=== PATIENT | male | born 1990 | race Caucasian/White ===

== ENCOUNTER 2019-02-11 19:49 | Inpatient (IN) | payer MEDICAID ==
[~2019-02-11] VITALS: Ht 170.2 cm; Wt 126.1 kg
[2019-02-11] MEDS ORDERED: SODIUM CHLORIDE 0.9% 1,000 ML IV ONE (20:25)
[2019-02-11 20:42] LABS: BASOPHILS % 0.2 % (0.0-2.0); EOSINOPHILS % 0.5 % (0.0-5.0); HEMATOCRIT. 46.1 % (42.0-52.0); HEMOGLOBIN. 15.9 g/dL (14.0-18.0); MEAN CORPUSCULAR HEMOGLOBIN 28.4 pg (28.0-32.0); MEAN CORPUSCULAR VOLUME 82.4 fL (80.0-94.0); MEAN PLATELET VOLUME 8.6 fl (7.4-10.4); MONOCYTES % 4.1 % (2.0-8.0); NEUTROPHILS % 79.2 % (40.0-76.0); PLATELET 226 x1000/uL (130-400); RED BLOOD CELL COUNT 5.59 mill/uL (4.7-6.1); RED CELL DISTRIBUTION WIDTH 15.2 % (11.6-14.6)
[2019-02-11 20:49] LABS: CHLORIDE 105 mEq/L (98-107)
[2019-02-11 20:50] LABS: PROTHROMBIN TIME 10.5 sec (9.6-11.0)
[2019-02-11 20:53] LABS: ETHANOL BLOOD < 10 mg/dL
[2019-02-11 20:57] LABS: CREATINE KINASE 27 IU/L (39-308)
[2019-02-11 21:07] LABS: CARBAMAZEPINE < 0.5 ug/mL (4-12); PHENOBARBITAL < 2.1 ug/mL (15.0-40.0)
[2019-02-11] MEDS ORDERED: LEVETIRACETAM 1000MG/100ML 100 ML IV ONE (21:45)
[2019-02-11] MEDS ORDERED: POTASSIUM CHLORIDE 20MEQ/PACKET GT ONE (22:00)
[2019-02-11] MEDS ORDERED: ACETAMINOPHEN 325MG TABLET PO PRN (22:15)
[2019-02-11] MEDS ORDERED: ONDANSETRON HCL 4MG/2ML INJ IV PRN (22:15)
[2019-02-11] MEDS ORDERED: DOCUSATE SODIUM 100MG CAPSULE PO PRN (22:15)
[2019-02-11] MEDS ORDERED: MAGNESIUM/ALUMINUM HYDROXIDE/SIMETHICONE 30ML UDC PO PRN (22:15)
[2019-02-11] MEDS ORDERED: LEVETIRACETAM 500 MG in SODIUM CHLORIDE 0.9% 100 ML IV SCH (22:15)
[2019-02-11] MEDS ORDERED: CLONIDINE 0.1MG TABLET PO PRN (22:15)
[2019-02-11] MEDS ORDERED: IPRATROPIUM/ALBUTEROL 0.5-3(2.5)MG/3ML NEB NEB PRN (22:15)
[2019-02-11 23:28] LABS: CHLORIDE 110 mEq/L (98-107)
[2019-02-12] VITALS (11 sets, daily range): BP systolic 95–146; BP diastolic 55–96
[2019-02-12] MEDS: SODIUM CHLORIDE 0.9% 1,000 ML IV SCH ×2 (02:20→17:04)
[2019-02-12 05:42] LABS: BASOPHILS % 0.3 % (0.0-2.0); EOSINOPHILS % 0.8 % (0.0-5.0); HEMOGLOBIN. 14.8 g/dL (14.0-18.0); LYMPHOCYTES % 29.8 % (20.0-50.0); MEAN CORPUSCULAR HEMOGLOBIN 28.2 pg (28.0-32.0); MEAN CORPUSCULAR VOLUME 83.7 fL (80.0-94.0); MEAN PLATELET VOLUME 8.6 fl (7.4-10.4); MONOCYTES % 5.6 % (2.0-8.0); NEUTROPHILS % 63.5 % (40.0-76.0); PLATELET 187 x1000/uL (130-400); RED BLOOD CELL COUNT 5.26 mill/uL (4.7-6.1)
[2019-02-12 06:13] LABS: HDL CHOLESTEROL 28 mg/dL (40-59); LDL CHOLESTEROL 62 mg/dL (5-100)
[2019-02-12 06:17] LABS: CREATINE KINASE MB FRACTION < 1.0 ng/mL (0.5-3.6)
[2019-02-12] MEDS ORDERED: LEVETIRACETAM 500 MG in SODIUM CHLORIDE 0.9% 100 ML IV SCH (09:00)
[2019-02-12] MEDS: LEVETIRACETAM 500MG/5ML CUP PO SCH (21:22)
[2019-02-13] VITALS (10 sets, daily range): BP systolic 102–138; BP diastolic 57–82
[2019-02-13] MEDS: SODIUM CHLORIDE 0.9% 1,000 ML IV SCH ×3 (05:03→19:38)
[2019-02-13 06:37] LABS: CHLORIDE 109 mEq/L (98-107)
[2019-02-13 06:40] LABS: BASOPHILS % 0.2 % (0.0-2.0); EOSINOPHILS % 1.2 % (0.0-5.0); HEMATOCRIT. 39.1 % (42.0-52.0); HEMOGLOBIN. 13.6 g/dL (14.0-18.0); LYMPHOCYTES % 37.4 % (20.0-50.0); MEAN CORPUSCULAR HEMOGLOBIN 28.8 pg (28.0-32.0); MEAN PLATELET VOLUME 8.6 fl (7.4-10.4); MONOCYTES % 6.2 % (2.0-8.0); PLATELET 178 x1000/uL (130-400); RED BLOOD CELL COUNT 4.72 mill/uL (4.7-6.1); RED CELL DISTRIBUTION WIDTH 14.8 % (11.6-14.6)
[2019-02-13] MEDS: LEVETIRACETAM 500MG/5ML CUP PO SCH ×2 (09:02→21:03)
[2019-02-13] MEDS ORDERED: ATOR20TA MT (15:16)
[2019-02-13] MEDS ORDERED: FAMO-135 PO (15:17)
[2019-02-13] MEDS ORDERED: LEVE1000 PO (15:17)
[2019-02-13] MEDS: FAMOTIDINE 20MG TABLET PO SCH (17:00)
[2019-02-13] MEDS ORDERED: ATORVASTATIN CALCIUM 20MG TABLET PO SCH (21:00)
[2019-02-13] MEDS: ENOXAPARIN 40MG/0.4ML SYR SUBCUT SCH (21:03)
[2019-02-14] VITALS: BP 113/60
[2019-02-14 04:00] VITALS: BP 116/82
[2019-02-14 07:06] LABS: CHLORIDE 109 mEq/L (98-107)
[2019-02-14 07:16] LABS: BASOPHILS % 0.3 % (0.0-2.0); EOSINOPHILS % 1.7 % (0.0-5.0); HEMATOCRIT. 38.3 % (42.0-52.0); HEMOGLOBIN. 13.2 g/dL (14.0-18.0); LYMPHOCYTES % 36.7 % (20.0-50.0); MEAN CORPUSCULAR HEMOGLOBIN 28.6 pg (28.0-32.0); MEAN PLATELET VOLUME 9.1 fl (7.4-10.4); MONOCYTES % 6.2 % (2.0-8.0); NEUTROPHILS % 55.1 % (40.0-76.0); PLATELET 184 x1000/uL (130-400); RED BLOOD CELL COUNT 4.61 mill/uL (4.7-6.1); RED CELL DISTRIBUTION WIDTH 14.8 % (11.6-14.6)
[2019-02-14 08:00] VITALS: BP 116/70
[2019-02-14] MEDS ORDERED: POTASSIUM CHLORIDE 20MEQ/PACKET PO SCH (08:15)
[2019-02-14] MEDS: FAMOTIDINE 20MG TABLET PO SCH (09:26)
[2019-02-14] MEDS: LEVETIRACETAM 500MG/5ML CUP PO SCH (09:26)
[2019-02-14] MEDS: ENOXAPARIN 40MG/0.4ML SYR SUBCUT SCH (09:27)
[2019-02-14 12:00] VITALS: BP 113/64
[2019-02-14 12:50] VITALS: BP 113/64
== END 2019-02-14 15:22 | disposition home or self-care (01) | DRG 53 ==
LOC: ER 20:09 → 5EST 21:41 → EDBEDREQTM 21:44 → EDBEDREQ 21:44 → ENRESERV 23:36
PROVIDERS: ADMIT Internal Medicine; ATTEND Internal Medicine
PROC: 4A00X4Z Measurement of Central Nervous Electrical Activity, External Approach (ICD-10-PCS; principal; 2019-02-12)
DX: G40.409 Other generalized epilepsy and epileptic syndromes, not intractable, without status epilepticus (principal); G93.89 Other specified disorders of brain; Z93.0 Tracheostomy status; I69.351 Hemiplegia and hemiparesis following cerebral infarction affecting right dominant side; R00.1 Bradycardia, unspecified; E87.6 Hypokalemia; I51.7 Cardiomegaly; Z93.1 Gastrostomy status
CPT/HCPCS: 36415; 70551; 71045; 80048; 80061; 80156; 80165; 80184; 80185; 80320; 82550; 82553; 82962; 83735; 83880; 84443; 84484; 93005; 93970; 96365; 99291; J1650; J1953; J7030; J7050; G0480